=== PATIENT | female | born 2000 | race Two or more races ===

== ENCOUNTER 2023-10-08 21:32 | Observation (INO) | payer BC ==
[~2023-10-08] VITALS: Ht 175.3 cm; Wt 92.1 kg
[2023-10-08] MEDS: TERBUTALINE SULFATE 1 MG/ML 1ML VIAL SC SCH (23:00)
[2023-10-08] MEDS: TERBUTALINE SULFATE 1 MG/ML 1ML VIAL SC ONE (23:00)
[2023-10-08] MEDS: LACTATED RINGER'S 1,000 ML IV ONE (23:01)
[2023-10-08] MEDS ORDERED: PREN-96 OR (23:21)
[2023-10-08] MEDS ORDERED: FERR-7 PO (23:22)
== END 2023-10-09 00:57 | disposition home or self-care (01) ==
LOC: LDRP 21:32
PROVIDERS: ADMIT Obstetrics & Gynecology; ATTEND Obstetrics & Gynecology
DX: O24.414 Gestational diabetes mellitus in pregnancy, insulin controlled (principal); O26.893 Other specified pregnancy related conditions, third trimester; R03.0 Elevated blood-pressure reading, without diagnosis of hypertension; Z3A.35 35 weeks gestation of pregnancy; Z79.4 Long term (current) use of insulin
CPT/HCPCS: 59025; 81002; 82948; 82962; 94760; 96360; 96361; 96372; G0378; J3105

== ENCOUNTER 2023-10-13 22:51 | Inpatient (IN) | payer BC, MEDICAID ==
[~2023-10-13] VITALS: Ht 175.3 cm; Wt 104.3 kg
[~2023-10-13 22:51] MED LIST: FERR-7 PO; PREN-96 OR
[2023-10-13] MEDS: LACT. RINGERS/OXYTOCIN 20UNITS 1,000 ML IV ONE (23:17)
[2023-10-13] MEDS ORDERED: BUTORPHANOL TARTRATE 2 MG/1 ML VIAL IV PRN ×2 (23:30)
[2023-10-13] MEDS ORDERED: LACTATED RINGER'S 1,000 ML IV SCH (23:30)
[2023-10-13] MEDS: PENICILLIN G POT 5MIL/D5 50ML 50 ML IV ONE (23:30)
[2023-10-14] VITALS (23 sets, daily range): BP systolic 116–157; BP diastolic 57–93; PULSE 71–95; RESP 16–18; TEMP 98.4–99; O2SAT 96–100
[2023-10-14] MEDS: OXYTOCIN 10UNIT/ML 1ML VIAL ONE (00:25)
[2023-10-14] MEDS: LACT. RINGERS/OXYTOCIN 20UNITS 500 ML IV ONE ×2 (00:26→00:45)
[2023-10-14] MEDS: MAGNESIUM SULFATE 100 ML IV ONE (00:28)
[2023-10-14] MEDS: MAGNESIUM SULFATE 40MG/ML 1,000 ML IV ONE (00:31)
[2023-10-14] MEDS: LIDOCAINE 2%HCL (LOCAL ANESTH.) INJ 20ML MDV IJ PRN (00:32)
[2023-10-14] MEDS: DERMOPLAST 60ML BOTTLE TOP PRN (00:32)
[2023-10-14] MEDS: PHISODERM TOP SOLN 240ML BTL TOP PRN (00:32)
[2023-10-14] MEDS: WITCH HAZEL-GLYCERIN PAD TOP PRN (00:32)
[2023-10-14 00:35] LABS: Basophils # (auto) 0 10 ^3/uL (0-0.2); Basophils % (auto) 0.2 % (0.0-2.0); Eosinophils # (auto) 0 10 ^3/uL (0-0.8); Eosinophils % (auto) 0.1 % (0.0-7.0); Lymphocytes # (auto) 0.9 10 ^3/uL (0.4-5.4); Neutrophils # (auto) 10.3 10 ^3/uL (1.6-8.6); White Blood Cell 11.8 10^3/uL (4.4-10.8)
[2023-10-14 00:37] LABS: Hematocrit 40.1 % (36.0-46.0); Hemoglobin 12.4 g/dL (12.2-16.2); Mean Corpuscular Hemoglobin 23.8 pg (28.0-32.0); Mean Corpuscular Hgb Conc. 30.9 g/dL (32.0-36.0); Mean Corpuscular Volume 77.1 fL (80.0-100.0); Monocytes # (auto) 0.5 10 ^3/uL (0-1.3); Monocytes % (auto) 4.2 % (0.0-12.0); Neutrophils % (auto) 87.5 % (37.0-80.0)
[2023-10-14 00:43] LABS: Urine Bacteria FEW /hpf (None Seen); Urine Blood 3+ /uL (Negative); Urine Clarity Clear (Clear); Urine Color Light-Yellow (Yellow); Urine Mucus FEW (None Seen); Urine Protein, UAD 1+ (Negative); Urine Specific Gravity 1.022 (1.001-1.035); Urine Urobilinogen Normal (Negative); Urine WBC 1 /hpf (0 - 5); Urine pH 6.5 (5.0-9.0)
[2023-10-14 00:44] LABS: Red Cell Distribution Width 24.4 % (11.8-14.3)
[2023-10-14] MEDS ORDERED: hydrALAZINE HCL 20 MG/ML VL IV PRN (00:45)
[2023-10-14 00:51] LABS: INR 0.98 (0.9-1.15); Partial Thromboplastin Time 29.6 SEC (24.5-34.5); Prothrombin Time 10.4 sec (9.3-11.8)
[2023-10-14 00:52] LABS: Alanine Aminotransferase 20 U/L (7-40); Albumin 3.8 g/dL (3.2-4.8); Alkaline Phosphatase 133 U/L (46-116); Anion Gap 12 (5-15); Aspartate Aminotransferase 26 U/L (13-40); BUN/Creatinine Ratio 7.9 (10.0-20.0); Bilirubin, Total 0.6 mg/dL (0.2-1.0); Blood Urea Nitrogen < 5 mg/dL (9-23); Calcium 10.1 mg/dL (8.7-10.4); Carbon Dioxide 18 mmol/L (20-30); Chloride 110 mmol/L (98-107); Glucose 156 mg/dL (74-106); Potassium 3.6 mmol/L (3.5-5.1); Sodium 140 mmol/L (136-145); Total Protein 6.6 g/dL (5.7-8.2)
[2023-10-14 01:28] LABS: Anisocytosis Moderate; Hypochromia Moderate; Platelet Estimate Adequate
[2023-10-14 01:39] LABS: Amphetamine Screen, Urine Neg (NEGATIVE); Barbiturate Scree,Urine Neg (NEGATIVE); Benzodiazephine Screen, Urine Neg (NEGATIVE); Cannabinoid Screen, Urine Neg (NEGATIVE); Cocaine Screen, Urine Neg (NEGATIVE); Opiate Scree,Urine Neg (NEGATIVE); Phencyclidine Screen, Urine Neg (NEGATIVE)
[2023-10-14 01:42] LABS: Creatinine, Urine 133.02 mg/dL (30.0-125.0); Protein, Urine 80.2 mg/dL (0.0-11.9); Urine Protein/Creatinine Ratio 0.6
[2023-10-14 07:09] LABS: Basophils # (auto) 0 10 ^3/uL (0-0.2); Basophils % (auto) 0.1 % (0.0-2.0); Eosinophils # (auto) 0 10 ^3/uL (0-0.8); Hematocrit 34.9 % (36.0-46.0); Lymphocytes # (auto) 0.7 10 ^3/uL (0.4-5.4); Mean Corpuscular Hgb Conc. 31.5 g/dL (32.0-36.0); Monocytes # (auto) 0.9 10 ^3/uL (0-1.3); Nucleated Red Blood Cells % 0.1 %
[2023-10-14 07:11] LABS: Lymphocytes % (auto) 5.2 % (10.0-50.0); Mean Corpuscular Volume 76.2 fL (80.0-100.0); Monocytes % (auto) 6.6 % (0.0-12.0); Neutrophils # (auto) 11.8 10 ^3/uL (1.6-8.6); Neutrophils % (auto) 88.1 % (37.0-80.0); Red Blood Cells 4.58 10^6/uL (4.0-5.20); Red Cell Distribution Width 24.2 % (11.8-14.3); White Blood Cell 13.4 10^3/uL (4.4-10.8)
[2023-10-14] MEDS ORDERED: LORazepam 2MG/ML-1ML VIAL IV PRN (09:15)
[2023-10-14] MEDS: MAGNESIUM SULFATE 40MG/ML 1,000 ML IV SCH (10:39)
[2023-10-14] MEDS ORDERED: ACETAMINOPHEN 325 MG TAB PO PRN (13:30)
[2023-10-14] MEDS ORDERED: ONDANSETRON ODT 4 MG TAB PO PRN (13:30)
[2023-10-14] MEDS: IBUPROFEN 600 MG TAB PO PRN (14:21)
[2023-10-14] MEDS ORDERED: ACCU-CHEK COMFORT CURVE STRIP VI SCH (17:00)
[2023-10-14] MEDS: DOCUSATE SOD 100 MG CAP PO SCH (22:16)
[2023-10-15] VITALS (7 sets, daily range): BP systolic 130–146; BP diastolic 71–86; PULSE 54–79; RESP 16–18; TEMP 97.7–99.6; O2SAT 98–99
[2023-10-15 07:06] LABS: RPR Non Reactive (Non Reactive)
[2023-10-15 10:06] LABS: Rubella Antibodies, IgG 8.74 index (Immune >0.99)
[2023-10-16 02:44] VITALS: BP 142/76; PULSE 71; RESP 15; TEMP 98.7; O2SAT 100
[2023-10-16 07:00] VITALS: BP 129/67; PULSE 64; RESP 16; TEMP 98.9; O2SAT 100
[2023-10-16] MEDS: TETANUS-DIPTH-ACEL PERTUSSIS 0.5ML SYR Tdap IM ONE (08:46)
== END 2023-10-16 09:25 | disposition home or self-care (01) | DRG 805 ==
LOC: UNDOADMOB 22:51 → LDRP 22:51 → OBSVTOIN 23:11 → INTOOBSV 23:11 → LDRP 23:12 → OBSVTOIN 23:34 → LDRP 23:34
PROVIDERS: ADMIT Obstetrics & Gynecology; ATTEND Obstetrics & Gynecology
PROC: 10E0XZZ Delivery of Products of Conception, External Approach (ICD-10-PCS; principal; 2023-10-14)
PROC: 0HQ9XZZ Repair Perineum Skin, External Approach (ICD-10-PCS; 2023-10-14)
PROC: 0UQMXZZ Repair Vulva, External Approach (ICD-10-PCS; 2023-10-14)
DX: O69.81X0 Labor and delivery complicated by cord around neck, without compression, not applicable or unspecified (principal); O60.14X0 Preterm labor third trimester with preterm delivery third trimester, not applicable or unspecified; Z37.0 Single live birth; O24.92 Unspecified diabetes mellitus in childbirth; O11.4 Pre-existing hypertension with pre-eclampsia, complicating childbirth; O70.0 First degree perineal laceration during delivery; O71.82 Other specified trauma to perineum and vulva; Z3A.36 36 weeks gestation of pregnancy; Z79.4 Long term (current) use of insulin
CPT/HCPCS: 36415; 59409; 80053; 80307; 81001; 81002; 82570; 82948; 83735; 84156; 84550; 85025; 85610; 85730; 86592; 86703; 86762; 86850; 86900; 86901; 87340; 90471; 90715; 94760; 96361; 96365; 96366; 96372; G0378; J2590